=== PATIENT | male | born 1940 | race Caucasian/White ===

== ENCOUNTER 2019-06-04 18:31 | Inpatient (IN) | payer OTHER ==
[~2019-06-04] VITALS: Ht 175.3 cm; Wt 72.6 kg
[2019-06-04 19:25] LABS: Source, Urine Clean Catch
[2019-06-04 19:26] LABS: BASOPHILS ABSOLUTE AUTO 0.04 K/mm3 (0.00-0.23); BASOPHILS PERCENT AUTO 0 % (0-2); EOSINOPHILS ABSOLUTE AUTO 0.26 K/mm3 (0.00-0.68); EOSINOPHILS PERCENT AUTO 2 % (0-6); Hematocrit 45.6 % (37.0-53.0); Hemoglobin 15.7 g/dL (13.5-17.5); IMMATURE GRAN ABSOLUTE AUTO 0.04 K/mm3 (0.00-0.10); IMMATURE GRAN PERCENT AUTO 0 % (0-1); LYMPHOCYTES ABSOLUTE AUTO 1.19 K/mm3 (0.84-5.20); LYMPHOCYTES PERCENT AUTO 10 % (21-46); MONOCYTES ABSOLUTE AUTO 0.95 K/mm3 (0.16-1.47); MONOCYTES PERCENT AUTO 8 % (4-13); Mean Corpuscular HGB 30.8 pg (26.0-34.0); Mean Corpuscular HGB Conc 34.4 g/dL (31.5-36.5); Mean Corpuscular Volume 89 fL (80-100); NEUTROPHILS ABSOLUTE AUTO 9.97 K/mm3 (1.96-9.15); NEUTROPHILS PERCENT AUTO 80 % (41-73); Platelet Count 256 K/mm3 (150-400); RDW Coefficient Variation 12.1 % (11.7-14.2); White Blood Cell Count 12.45 K/mm3 (4.00-11.30)
[2019-06-04 19:27] LABS: Bilirubin, Urine Neg (Neg); Blood, Urine 1+ (Neg); Glucose Qualitative, Urine Neg (Neg); Ketones, Urine 3+ (Neg); Leukocyte Esterase, Urine 1+ (Neg); Nitrite, Urine Neg (Neg); Protein, Urine 1+ (Neg); Specific Gravity, Urine 1.015 (1.003-1.022); Urobilinogen, Urine 1+ (Normal)
[2019-06-04 19:37] LABS: Appearance, Urine Clear (Clear); Color, Urine Yellow (P-Yellow)
[2019-06-04 19:38] LABS: Bacteria Mod /hpf; Mucus Mod (0-Heavy); Squamous Epithelial Cells Few /hpf (Few); White Blood Cells, Urine 0-2 /hpf (0-5)
[2019-06-04 19:48] LABS: Alanine Aminotransfer (ALT/SGP 33 U/L (12-78); Albumin, Blood 4.3 g/dL (3.4-5.0); Albumin/Globulin Ratio 1.2 (0.8-1.8); Alk Phos 65 U/L (50-136); Anion Gap 6 mmol/L (6-16); Aspartate Aminotrans (AST/SGOT 24 U/L (12-37); Blood Urea Nitrogen 20 mg/dL (8-24); Bun/Creatinine Ratio 24.9 (12.0-20.0); CO2, Blood 28 mmol/L (21-32); Calcium, Blood 9.5 mg/dL (8.5-10.1); Chloride, Blood 100 mmol/L (98-108); Globulin, Blood 3.5 g/dL (2.2-4.0); Glomerular Filtration Rate >60 (60-); Glucose, Blood 113 mg/dL (70-99); Potassium, Blood 3.8 mmol/L (3.5-5.5); Sodium, Blood 134 mmol/L (136-145); Total Protein, Blood 7.8 g/dL (6.4-8.2)
[2019-06-04] MEDS ORDERED: ELIQUIS5 MG PO (20:56)
[2019-06-04] MEDS ORDERED: AMIODARONE HCL100 MG PO (20:56)
[2019-06-04] MEDS ORDERED: ZESTORETIC 20-121 EA PO (20:57)
[2019-06-04] MEDS ORDERED: BUPR150ER PO (20:57)
[2019-06-04] MEDS ORDERED: Isosorbide Mono60 MG PO (20:58)
[2019-06-04] MEDS ORDERED: RANO500T PO (20:59)
[2019-06-04] MEDS ORDERED: LEVSOD100 PO (20:59)
[2019-06-04] MEDS ORDERED: OMEPRAZOLE20 MG PO (20:59)
[2019-06-04] MEDS ORDERED: LIDO700A20 TOP (20:59)
[2019-06-04] MEDS ORDERED: Zocor20 MG PO (21:00)
[2019-06-04] MEDS ORDERED: NITR.4SL SL (21:00)
[2019-06-04] MEDS ORDERED: TAMS.4ER PO (21:00)
[2019-06-04] MEDS ORDERED: TRAZ50 PO (21:00)
--- NOTE | 2019-06-04 23:00 | NUR ---
RECEIVED HAND OFF FROM Rosa MARROQUIN RN USING SBAR. TRANSPORTED TO ROOM VIA STRETCHER. TRANSFERED SELF TO BED WITH STANDBY ASSIST, TOLERATED WELL. AAO X3, LOYOLA, FOLLOWS ALL COMMANDS. ORIENTED TO ROOM, CALL SYSTEM, AND POC, VOICES UNDERSTANDING. RESPIRATIONS EVEN AND UNLABORED ON ROOM AIR. LUNG SOUNDS CLEAR BILATERALLY. ABDOMEN TENDER AND NONDISTENDED. HYPERACTIVE BOWEL SOUNDS PRESENT IN ALL QUADS. CONTINENT OF BOWEL AND BLADDER, USES URINAL AND BATHROOM WITH STANDBY ASSIST PRN. RATES CURRENT PAIN AT 8/10. PAIN MEDS TO BE ADMINSTERED PER MD ORDERS WHEN CLEARED THROUGH RX. SCD'S PLACED TO BLE. DENIES FURTHER NEEDS OR WANTS AT THIS TIME. ADMISSION ASSESSMENT IN PROGRESS. SAFETY MEASURES IN PLACE. WILL CONTINUE TO MONITOR.
[2019-06-05 04:02] LABS: BASOPHILS ABSOLUTE AUTO 0.03 K/mm3 (0.00-0.23); BASOPHILS PERCENT AUTO 0 % (0-2); EOSINOPHILS ABSOLUTE AUTO 0.14 K/mm3 (0.00-0.68); EOSINOPHILS PERCENT AUTO 1 % (0-6); Hematocrit 41.5 % (37.0-53.0); Hemoglobin 14.5 g/dL (13.5-17.5); IMMATURE GRAN ABSOLUTE AUTO 0.03 K/mm3 (0.00-0.10); IMMATURE GRAN PERCENT AUTO 0 % (0-1); LYMPHOCYTES ABSOLUTE AUTO 1.05 K/mm3 (0.84-5.20); LYMPHOCYTES PERCENT AUTO 9 % (21-46); MONOCYTES ABSOLUTE AUTO 1.08 K/mm3 (0.16-1.47); MONOCYTES PERCENT AUTO 9 % (4-13); Mean Corpuscular HGB 30.6 pg (26.0-34.0); Mean Corpuscular HGB Conc 34.9 g/dL (31.5-36.5); Mean Corpuscular Volume 88 fL (80-100); Mean Platelet Volume 9.5 fL (9.1-12.4); NEUTROPHILS ABSOLUTE AUTO 9.24 K/mm3 (1.96-9.15); NEUTROPHILS PERCENT AUTO 80 % (41-73); Platelet Count 197 K/mm3 (150-400); RDW Coefficient Variation 12.3 % (11.7-14.2); RDW Standard Deviation 39.6 fL (35.1-46.3); Red Blood Cell Count 4.74 M/mm3 (4.30-5.90); White Blood Cell Count 11.57 K/mm3 (4.00-11.30)
[2019-06-05 04:22] LABS: Alanine Aminotransfer (ALT/SGP 26 U/L (12-78); Albumin, Blood 3.5 g/dL (3.4-5.0); Albumin/Globulin Ratio 1.2 (0.8-1.8); Alk Phos 55 U/L (50-136); Anion Gap 4 mmol/L (6-16); Aspartate Aminotrans (AST/SGOT 21 U/L (12-37); Bilirubin, Total 0.9 mg/dL (0.1-1.0); Blood Urea Nitrogen 20 mg/dL (8-24); Bun/Creatinine Ratio 21.3 (12.0-20.0); CO2, Blood 28 mmol/L (21-32); Calcium, Blood 8.5 mg/dL (8.5-10.1); Chloride, Blood 104 mmol/L (98-108); Creatinine, Blood 0.94 mg/dL (0.60-1.20); Globulin, Blood 2.9 g/dL (2.2-4.0); Glomerular Filtration Rate >60 (60-); Glucose, Blood 124 mg/dL (70-99); Potassium, Blood 4.2 mmol/L (3.5-5.5); Sodium, Blood 136 mmol/L (136-145); Total Protein, Blood 6.4 g/dL (6.4-8.2)
--- NOTE | 2019-06-05 05:25 | NUR ---
SHIFT SUMMARY RESTING WELL WITH EYES CLOSED. RATES PAIN AT 5/10 CURRENTLY, REFUSES OFF FOR PAIN MEDS AT THIS TIME. VOICES UNDERSTANDING OF INSTRUCTIONS TO CALL FOR PAIN MEDS BEFORE PAIN LEVEL ESCALATES. DENIES FURTHER NEEDS AT THIS TIME. SAFETY MEASURES IN PLACE. WILL GIVE HAND OFF TO ONCOMING SHIFT USING SBAR.
--- NOTE | 2019-06-05 19:16 | NUR ---
SUMMARY: PT ADMITTED FOR ACUTE YUN. VSS, A/O. PT UNABLE TO GO TO SURGERY TODAY DUE TO HOME DOSE OF XARELTO TAKEN PRIOR TO ADMIT. PLAN IS FOR SURGERY TOMORROW. PT HAS DENIED NAUSEA. MEDICATED FOR PAIN PER EMAR. FLUIDS RUNNING AND PT VOIDING, INDEPENDENT IN ROOM. NO ACUTE CONCERNS AT THIS TIME. REPORT GIVEN TO MILEY STINSON.
[2019-06-06 03:51] LABS: BASOPHILS ABSOLUTE AUTO 0.04 K/mm3 (0.00-0.23); BASOPHILS PERCENT AUTO 0 % (0-2); EOSINOPHILS ABSOLUTE AUTO 0.33 K/mm3 (0.00-0.68); EOSINOPHILS PERCENT AUTO 3 % (0-6); Hematocrit 39.1 % (37.0-53.0); Hemoglobin 13.3 g/dL (13.5-17.5); IMMATURE GRAN ABSOLUTE AUTO 0.03 K/mm3 (0.00-0.10); IMMATURE GRAN PERCENT AUTO 0 % (0-1); LYMPHOCYTES PERCENT AUTO 7 % (21-46); MONOCYTES ABSOLUTE AUTO 1.22 K/mm3 (0.16-1.47); MONOCYTES PERCENT AUTO 9 % (4-13); Mean Corpuscular HGB 30.8 pg (26.0-34.0); Mean Platelet Volume 9.7 fL (9.1-12.4); NEUTROPHILS ABSOLUTE AUTO 10.84 K/mm3 (1.96-9.15); NEUTROPHILS PERCENT AUTO 81 % (41-73); Platelet Count 174 K/mm3 (150-400); RDW Coefficient Variation 12.4 % (11.7-14.2); RDW Standard Deviation 41.2 fL (35.1-46.3); Red Blood Cell Count 4.32 M/mm3 (4.30-5.90); White Blood Cell Count 13.46 K/mm3 (4.00-11.30)
[2019-06-06 03:52] LABS: Mean Corpuscular Volume 91 fL (80-100)
[2019-06-06 04:10] LABS: Alanine Aminotransfer (ALT/SGP 21 U/L (12-78); Alk Phos 48 U/L (50-136); Anion Gap 6 mmol/L (6-16); Aspartate Aminotrans (AST/SGOT 21 U/L (12-37); Bilirubin, Total 1.3 mg/dL (0.1-1.0); Blood Urea Nitrogen 19 mg/dL (8-24); Bun/Creatinine Ratio 21.7 (12.0-20.0); CO2, Blood 27 mmol/L (21-32); Calcium, Blood 8.1 mg/dL (8.5-10.1); Chloride, Blood 105 mmol/L (98-108); Creatinine, Blood 0.87 mg/dL (0.60-1.20); Glomerular Filtration Rate >60 (60-); Glucose, Blood 113 mg/dL (70-99); Potassium, Blood 4.1 mmol/L (3.5-5.5); Sodium, Blood 138 mmol/L (136-145)
--- NOTE | 2019-06-06 06:40 | NUR ---
SHIFT SUMMARY ASSUMED CARE OF PT AT APPROX 0200 FROM [facility]. PT HAS BEEN A/O C/O PAIN IN ABD X1 AND MEDICATED PER EMAR, USING URINAL AT BEDSIDE. HE WAS ABLE TO SLEEP OFF AND ON T/O REST OF NIGHT. CALL LIGHT IN REACH.
--- NOTE | 2019-06-06 12:04 | NUR ---
PT OUT OF ROOM TO HAVE PROCEDURE. FAMILY PRESENT. PT BEEN NPO SINCE MIDNIGHT. PT VOIDED SMALL AMT HE RECENTLY VOIDED, THAT'S NORMAL FOR ME TO VOID SMALL AMT'S AT A TIME ANYWAY PER PT.
--- NOTE | 2019-06-06 12:12 | NUR ---
History, Chart, Medications and Allergies reviewed before start of procedure. Lungs clear T/O to Auscultation. Patient confirms NPO status and agrees with scheduled surgery. Pre-Op teaching done. Pt verbalizes understanding.
--- NOTE | 2019-06-06 13:37 | NUR ---
06/06/19 1337 Christina John PT ON SCHEDULED ANTIBIOTICS AND RECIEVED THEM PRIOR TO ARRIVAL TO OR.
--- NOTE | 2019-06-06 17:15 | NUR ---
PT RECENTLY BACK FROM PROCEDURE. FAMILY PRESENT. PT SLIGHLY CONFUSED AT TIMES. PT REPORTS PAIN MODERATE BUT DENIES NEED FOR PAIN MEDICATION. PT REPORTS BEING AWARE THAT HE IS SLIGHTLY CONFUSED. PT HAS STERI-STRIPS TO ABD X4. PT ALSO HAS PORFIRIO IN PLACE. PT ASSISTED WITH ADL'S PRN. PT TELE PLACED, GIVEN CALL LIGHT. ALARM IN PLACE FOR SAFETY.
--- NOTE | 2019-06-06 18:34 | NUR ---
SHIFT SUMMARY PT HAD PROCEDURE TODAY. PT WAS SLIGHTLY CONFUSED WHEN OUT OF PROCEDURE ALTHOUGH HE REPORTS FEELING LIKE HE'S GETTING BETTER. PT DENIES NEEDING PAIN MEDICATION WHEN BACK TO ROOM. DISCUSSED PAIN MGMT WITH PT. FAMILY WAS PRESENT WHEN PT BACK TO ROOM, HAVE LEFT FOR HOME. ALARM IN PLACE. PT AWAKES EASILY.
--- NOTE | 2019-06-07 04:30 | NUR ---
SHIFT SUMMARY PT IS A/O AND USES CALL LIGHT APPR. PT USES URINAL. HE HAS HAD PAIN, MEDICATED PER ORDERS. PORFIRIO DRAIN COMPRESSED, LAP SITE DRESSINGS CDI. PT HAS SLEPT ON-AND-OFF THROUGHOUT THE NIGHT. ASSISTED WITH ADL'S PRN.
--- NOTE | 2019-06-07 12:13 | NUR ---
DR MEADOWS HERE TO SEE PT RECENTLY. DISCUSSED PT'S STATUS.
--- NOTE | 2019-06-07 17:59 | NUR ---
SHIFT SUMMARY PT EATING AND DRINKING. PT VOIDING. PT IND IN ROOM WITH STEADY GAIT. PT BEEN ASSISTED WITH ADL'S. PT HAD INCREASED PAIN THIS AFTERNOON, PT REPORTED THAT IT FELT LIKE THE BLOCK WORE OFF. WAS NOTIFIED, SEE NEW ORDERS. PT MED ORDERED FOR PAIN. PT REPORTED THAT PAIN WAS BETTER THIS EVENING.
--- NOTE | 2019-06-07 19:35 | NUR ---
SHIFT SUMMARY PT DRINKING SMALL AMTS OF LIQUID. PT BEEN ASSISTED WITH ADL'S PRN. PT UP AND WALKED IN HALLWAY TODAY X 2 WITH ASSIST FROM RN AFTER DR MEADOWS TO ROOM. PT BEEN UP TO CHAIR, NOW IN BED. PT USING CALL LIGHT APPR. PT PAS IN PLACE. PT VOIDING.
[2019-06-08 04:31] LABS: Hematocrit 34.7 % (37.0-53.0); Hemoglobin 11.8 g/dL (13.5-17.5); Mean Corpuscular HGB 30.9 pg (26.0-34.0); Mean Corpuscular Volume 91 fL (80-100); Mean Platelet Volume 9.8 fL (9.1-12.4); Platelet Count 195 K/mm3 (150-400); RDW Coefficient Variation 12.5 % (11.7-14.2); RDW Standard Deviation 41.4 fL (35.1-46.3); Red Blood Cell Count 3.82 M/mm3 (4.30-5.90); White Blood Cell Count 9.14 K/mm3 (4.00-11.30)
--- NOTE | 2019-06-08 04:36 | NUR ---
SHIFT SUMMARY PT RESTED WELL T/O NIGHT. AAOX4. POD#2. DISCOMFORT CONTROLLED WITH 2 NORCO X2 THIS SHIFT. NO NAUSEA/EMESIS. ABD INCISION WITH GAUZE C/D/I. PORFIRIO SECURE, DRAINED 20cc SS OUT. PT UP TO RESTROOM THIS SHIFT, LARGE AMOUNTS FLATUS, NO BM. IVF + ABX PER ORDERS. PT RESTING AT THIS TIME, NADN, CALL LIGHT IN REACH.
[2019-06-08 04:45] LABS: Anion Gap 4 mmol/L (6-16); Blood Urea Nitrogen 9 mg/dL (8-24); Bun/Creatinine Ratio 10.3 (12.0-20.0); CO2, Blood 30 mmol/L (21-32); Calcium, Blood 8.2 mg/dL (8.5-10.1); Chloride, Blood 104 mmol/L (98-108); Creatinine, Blood 0.88 mg/dL (0.60-1.20); Glomerular Filtration Rate >60 (60-); Glucose, Blood 108 mg/dL (70-99); Potassium, Blood 3.7 mmol/L (3.5-5.5); Sodium, Blood 138 mmol/L (136-145)
--- NOTE | 2019-06-08 13:19 | NUR ---
ASSUMED CARE OF PATIENT. PATIENT IS PLANNING TO DISCHARGE TO HOME LATER THIS AFTERNOON. TELEMETRY DC'D. POWERGLIDE IN PLACE TO RIGHT UPPER ARM AND DC'D AT THIS TIME. PATIENT DENIES NAUSEA AND NEED FOR PAIN MEDS, REQUESTS DOOR SHUT SO HE CAN SLEEP
[2019-06-08] MEDS ORDERED: HYDR1TAB94 PO (13:22)
--- NOTE | 2019-06-08 16:10 | NUR ---
DIACHARGE INSTRUCTIONS REVIEWED WITH PATIENT AND QUESTIONS ANSWERED. PATIENT WAITING FOR TO ARRIVE TO TRANSPORT TO HOME
--- NOTE | 2019-06-08 16:24 | NUR ---
DISCHARGED TO HOME WITH
== END 2019-06-08 16:25 | disposition home or self-care (01) | DRG 418 ==
LOC: ER 18:31 → SURS 21:41
PROVIDERS: Internal Medicine; Nurse Practitioner Acute Care; Physician Assistant; Surgery; ADMIT Internal Medicine
PROC: 0DNU4ZZ Release Omentum, Percutaneous Endoscopic Approach (ICD-10-PCS; 2019-06-06)
PROC: 0FT44ZZ Resection of Gallbladder, Percutaneous Endoscopic Approach (ICD-10-PCS; principal; 2019-06-06 12:45)
DX: K80.00 Calculus of gallbladder with acute cholecystitis without obstruction (principal); I48.20 Chronic atrial fibrillation, unspecified; K56.7 Ileus, unspecified; E03.9 Hypothyroidism, unspecified; I10 Essential (primary) hypertension; I25.10 Atherosclerotic heart disease of native coronary artery without angina pectoris; Z95.1 Presence of aortocoronary bypass graft; N40.0 Benign prostatic hyperplasia without lower urinary tract symptoms; E78.5 Hyperlipidemia, unspecified; Z87.891 Personal history of nicotine dependence; Z79.01 Long term (current) use of anticoagulants
CPT/HCPCS: 36415; 74177; 74300; 76705; 80048; 80053; 81001; 83690; 85025; 85027; 87086; 88304; 90686; 93005; 93010; 96365; 96375; 99285-25; A9270-GY; C1729; C9113; J0330; J1170; J2250; J2405; J2543; J2704; J2710; J3010; J3480; J7120; Q9967

== ENCOUNTER 2020-01-07 05:32 | Observation (INO) | payer OTHER ==
[~2020-01-07] VITALS: Ht 170.2 cm; Wt 75.0 kg
[~2020-01-07 05:32] MED LIST: AMIODARONE HCL100 MG PO; BUPR150ER PO; ELIQUIS5 MG PO; HYDR1TAB94 PO; Isosorbide Mono60 MG PO; LEVSOD100 PO; LIDO700A20 TOP; NITR.4SL SL; OMEPRAZOLE20 MG PO; RANO500T PO; TAMS.4ER PO; TRAZ50 PO; ZESTORETIC 20-121 EA PO; Zocor20 MG PO
[2020-01-07 06:18] LABS: BASOPHILS ABSOLUTE AUTO 0.03 K/mm3 (0.00-0.23); BASOPHILS PERCENT AUTO 1 % (0-2); EOSINOPHILS PERCENT AUTO 8 % (0-6); Hematocrit 37.3 % (37.0-53.0); Hemoglobin 12.6 g/dL (13.5-17.5); IMMATURE GRAN ABSOLUTE AUTO 0.03 K/mm3 (0.00-0.10); IMMATURE GRAN PERCENT AUTO 1 % (0-1); LYMPHOCYTES ABSOLUTE AUTO 1.42 K/mm3 (0.84-5.20); LYMPHOCYTES PERCENT AUTO 24 % (21-46); MONOCYTES ABSOLUTE AUTO 0.48 K/mm3 (0.16-1.47); MONOCYTES PERCENT AUTO 8 % (4-13); Mean Corpuscular HGB 29.9 pg (26.0-34.0); Mean Corpuscular HGB Conc 33.8 g/dL (31.5-36.5); Mean Corpuscular Volume 88 fL (80-100); Mean Platelet Volume 10.2 fL (9.1-12.4); NEUTROPHILS ABSOLUTE AUTO 3.58 K/mm3 (1.96-9.15); NEUTROPHILS PERCENT AUTO 59 % (41-73); Platelet Count 213 K/mm3 (150-400); RDW Coefficient Variation 13.4 % (11.7-14.2); RDW Standard Deviation 43.4 fL (35.1-46.3); Red Blood Cell Count 4.22 M/mm3 (4.30-5.90); White Blood Cell Count 6.04 K/mm3 (4.00-11.30)
[2020-01-07 06:31] LABS: Alanine Aminotransfer (ALT/SGP 23 U/L (12-78); Albumin, Blood 3.4 g/dL (3.4-5.0); Albumin/Globulin Ratio 1.1 (0.8-1.8); Alk Phos 53 U/L (50-136); Anion Gap 8 mmol/L (6-16); Aspartate Aminotrans (AST/SGOT 17 U/L (12-37); Bilirubin, Total 0.3 mg/dL (0.1-1.0); Blood Urea Nitrogen 17 mg/dL (8-24); Bun/Creatinine Ratio 18.5 (12.0-20.0); CO2, Blood 26 mmol/L (21-32); Calcium, Blood 8.7 mg/dL (8.5-10.1); Chloride, Blood 105 mmol/L (98-108); Creatinine, Blood 0.92 mg/dL (0.60-1.20); Globulin, Blood 3.2 g/dL (2.2-4.0); Glomerular Filtration Rate >60 (60-); Glucose, Blood 101 mg/dL (70-99); Potassium, Blood 3.9 mmol/L (3.5-5.5); Sodium, Blood 139 mmol/L (136-145); Total Protein, Blood 6.6 g/dL (6.4-8.2)
[2020-01-07 06:32] LABS: Troponin I <0.015 ng/mL (0.000-0.040)
[2020-01-07] MEDS ORDERED: ELIQUIS5 MG PO (07:42)
[2020-01-07] MEDS ORDERED: ASCO500 PO (07:43)
[2020-01-07] MEDS ORDERED: CARB10OTL (07:43)
[2020-01-07] MEDS ORDERED: FERRO-TIME325 MG (07:44)
[2020-01-07] MEDS ORDERED: HCTZ/LISINOPRIL (07:46)
[2020-01-07] MEDS ORDERED: Ativan1 MG PO (07:47)
[2020-01-07] MEDS ORDERED: MAGNESIUM OXID500 MG PO (07:48)
[2020-01-07 08:08] LABS: International Normalized Ratio 1.08; Prothrombin Time Results 11.5 Sec (9.7-11.5)
--- NOTE | 2020-01-07 17:44 | NUR ---
SHIFT SUMMARY PT ALERT AND ORIENTED. VS STABLE. O2 SATS REMAIN ABOVE 90% ON RA. BP STABLE. HR NSR. PT DENIES ANY CHEST PAIN SINCE ARRIVAL TO UNIT. PT ABLE TO TRANSFER INDEPENDENTLY IN ROOM. HEPARIN GTT DISCONTINUED AND PLAN FOR STRESS TEST TOMORROW. PT TO BE NPO AT MIDNIGHT. WILL CONTINUE TO MONITOR AND REPORT TO ONCOMING RN.
[2020-01-08 04:50] LABS: Hemoglobin 13.9 g/dL (13.5-17.5); Mean Corpuscular HGB 30.8 pg (26.0-34.0); Mean Corpuscular HGB Conc 34.8 g/dL (31.5-36.5); Mean Corpuscular Volume 89 fL (80-100); Mean Platelet Volume 10.5 fL (9.1-12.4); Platelet Count 219 K/mm3 (150-400); RDW Coefficient Variation 13.2 % (11.7-14.2); RDW Standard Deviation 43.5 fL (35.1-46.3); Red Blood Cell Count 4.52 M/mm3 (4.30-5.90); White Blood Cell Count 6.15 K/mm3 (4.00-11.30)
[2020-01-08 05:18] LABS: Anion Gap 4 mmol/L (6-16); Blood Urea Nitrogen 18 mg/dL (8-24); Bun/Creatinine Ratio 17.8 (12.0-20.0); CO2, Blood 30 mmol/L (21-32); Calcium, Blood 8.6 mg/dL (8.5-10.1); Chloride, Blood 105 mmol/L (98-108); Creatinine, Blood 1.01 mg/dL (0.60-1.20); Glomerular Filtration Rate >60 (60-); Glucose, Blood 94 mg/dL (70-99); Potassium, Blood 3.9 mmol/L (3.5-5.5); Sodium, Blood 139 mmol/L (136-145)
--- NOTE | 2020-01-08 06:00 | NUR ---
SHIFT SUMMARY. ASSUMED CARE AT 1900 . PAIN FREE AND OOB IN ROOM. AT 2020 LAST NOC REPORTS SUDDEN LT ANTERIOR CHEST WALL 3/10 PAIN OR ACHE . NOTICED IN MID JAW ACHING FEELING. DESCRIBING TO STAFF AND COMPLETELY GONG WITH IN ABOUT ONE MINUTE, . REPORTS THIS WAS STARTING WHEN HE TURNED TO LT SIDE. ON BACK AND TYLENOL AND PEPSID TAKEN WHEN. PAIN FREE. NO REPORT OF ANY DISCOMFORT OF SOB T/O THE NOC. SLEPT WELL AND AROUSED FOR VS AND LAB. OOB TO VOID AND NO ISSUES NOTED OR REPORTED.. SR ALL NOC. NPO FOR ONE DAY STRESS TEST. LUNGS REMAIN CLEAR. LATE HS SNACK .NO CAFFEINE.
--- NOTE | 2020-01-08 17:22 | NUR ---
PRIOR TO DISCHARGE PT WAS PROVIDED WITH DISHCARGE INSTRUCTIONS REVIEWING CURRENT MEDICATIONS, PHYSICIAN FOLLOW UP INFORMATION AND INFORMATION REGARDING WORSENING OF SYMPTOMS. PERIPHERAL IV WAS REMOVED. PT WAS REMOVED FROM TELEMETRY. PT WAS TAKEN BY WHEELCHAIR TO THE GENERAL ENTERANCE WITH STAFF NURSE AND THEN TAKEN HOME BY PERSONAL VEHICLE WITH .
== END 2020-01-08 16:58 | disposition home or self-care (01) ==
LOC: ER 05:32 → PCU 05:33
PROVIDERS: Emergency Medicine; Internal Medicine; Pharmacist; ADMIT Internal Medicine
DX: I48.91 Unspecified atrial fibrillation (principal); R07.9 Chest pain, unspecified; I10 Essential (primary) hypertension; E03.9 Hypothyroidism, unspecified; I20.0 Unstable angina; G31.84 Mild cognitive impairment of uncertain or unknown etiology; Z79.01 Long term (current) use of anticoagulants; Z79.899 Other long term (current) drug therapy
CPT/HCPCS: 36415; 71046; 78452; 80048; 80053; 83690; 84484; 85025; 85027; 85610; 85730; 93005; 93010; 93017; 99285-25; A9270-GY; A9500; J0706; J1644; J2785

== ENCOUNTER 2020-08-28 09:03 | Day surgery (SDC) | payer OTHER ==
[~2020-08-28] VITALS: Ht 167.6 cm; Wt 70.9 kg
[~2020-08-28 09:03] MED LIST changes: +ASCO500 PO; +Ativan1 MG PO; +CARB10OTL; +FERRO-TIME325 MG; +HCTZ/LISINOPRIL; +MAGNESIUM OXID500 MG PO
--- NOTE | 2020-08-28 11:30 | NUR ---
08/28/20 1130 Airam Hoyt 3ML OF NORMAL SALINE INJECTED INTO THE DESCENDING COLON POLYP BY DR YOUNG.
--- NOTE | 2020-08-28 15:59 | NUR ---
08/28/20 1559 Tomeka Rajan S PT. SITTING AT SIDE OF BED. PT. VERBALIZES BEING OK TO DRESS ON HIS OWN. BEDSIDE CHAIR ALSO NEXT TO BED INCASE PT. WANTED TO DRESS FROM CHAIR. [facility] [place]. [place]ESS BUT PT. VERBALIZED HE WAS OK TO DRESS ON HIS OWN. CALL LIGHT WAS ATTACHED TO HIS PILLOW SO THAT HE COULD REACH IT IF HE NEEDED ANYTHING. HEARD A BANG IN PT.'S ROOM,OPENED CURTAIN & OBSERVED PT. SITTING ON THE FLOOR IN CORNER OF ROOM. PT. HAD VERBALIZED HE HAD FALLEN. [facility] [place] [facility] BOTH IN ROOM. PT. VERBALIZED NOT HITTING HIS HEAD OR HAVING ANY PAIN. OBSERVED BLOOD ON PT.'S GOWN ON LEFT SIDE OF ARM. OBSERVED PT. WITH 2 SKIN TEARS, ONE ON LEFT UPPER ARM & ONE ON LEFT ELBOW AREA. PRESSURE HELD WITH CLOTH, SMALL AMT. BLOOD DRIPPING FROM SITES. PT. ALSO HAD NO COMPLAINTS OF HURTING HIS BACK WHEN [facility].B ASKED PT. DR. CHA NOTIFIED OF ALL THE ABOVE. PER DR. CHA APPLY DRESSINGS & PT. IS OK TO GO HOME. DR. CARDONA ALSO CAME IN ROOM TO ASSESS PT. PER DR. CARDONA, CLEANSE SKIN TEAR WOUNDS WITH HYDROGEN PEROXIDE & PULL SKIN OVER WOUNDS AND APPLY ANTIBIOTIC OINTMENT ON WOUNDS & THEN APPLY DRESSINGS. BOTH LEFT ARM SITES CLEANSED WITH HYDROGEN PEROXIDE, SKIN PULLED OVER OPEN AREA MUCH POSSIBLE, ANTIBIOTIC OINTMENT APPLIED TO 2X2'S, PRESSURE HELD X 10 MIN. & THEN COVERED WITH OPSITE DRESSINGS. SMALL AMT. BLOOD OBSERVED ON BOTH GAUZE DRESSINGS. DR. CHA CAME & SPOKE WITH PT. PER DR. CARDONA & DR. CHA, OK TO SEND PT. HOME. [facility] & [facility] ASSISTED PT. TO DRESS. PT. VERBALIZED AFTER FALLING THAT HE HAS A TENDENCY TO FALL. PT. USES A CANE. PT. TAKEN OUT BY WC WITH SBA INTO CAR. NOTIFIED OF PT.'S FALL. PT.'S EVEN VERBALIZED THAT HE FALLS AT HOME. ALSO NOTIFIED THAT PT. WAS TO START HIS ELIQUIS TOMORROW. PT. & INSTRUCTED TO MAKE SURE THAT IF FEELS ANYTHING DIFFERENT FROM HIS FALL TO CALL DR. MARSHALL. PT ALSO NOTIFIED THAT WE WOULD CALL HIM TOMORROW TO SEE HOW HE WAS DOING.
[2021-02-23] MEDS ORDERED: CIDAFLEX TABLE1 EAC1 PO (13:35)
[2021-02-23] MEDS ORDERED: Isosorbide Mono30 MG PO (13:35)
[2021-02-23] MEDS ORDERED: MAGNESIUM OXID500 MG PO (13:36)
[2021-02-23] MEDS ORDERED: MULVITA PO (13:36)
== END 2020-08-28 12:42 | disposition home or self-care (01) ==
LOC: ORSCSDS 09:03
PROVIDERS: Student in an Organized Health Care Education/Training Program
PROC: 0DBK8ZX Excision of Ascending Colon, Via Natural or Artificial Opening Endoscopic, Diagnostic (ICD-10-PCS; principal; 2020-08-28 10:30)
PROC: 0DBH8ZX Excision of Cecum, Via Natural or Artificial Opening Endoscopic, Diagnostic (ICD-10-PCS; principal; 2020-08-28 10:30)
PROC: 0DBN8ZX Excision of Sigmoid Colon, Via Natural or Artificial Opening Endoscopic, Diagnostic (ICD-10-PCS; principal; 2020-08-28 10:30)
PROC: 0DBM8ZX Excision of Descending Colon, Via Natural or Artificial Opening Endoscopic, Diagnostic (ICD-10-PCS; principal; 2020-08-28 10:30)
DX: R19.5 Other fecal abnormalities (principal); Z86.010 Personal history of colon polyps; D12.2 Benign neoplasm of ascending colon; D12.0 Benign neoplasm of cecum; D12.3 Benign neoplasm of transverse colon; D12.4 Benign neoplasm of descending colon; K63.5 Polyp of colon; K57.30 Diverticulosis of large intestine without perforation or abscess without bleeding; K64.8 Other hemorrhoids; K64.4 Residual hemorrhoidal skin tags; I10 Essential (primary) hypertension; E78.5 Hyperlipidemia, unspecified; E03.9 Hypothyroidism, unspecified; I25.10 Atherosclerotic heart disease of native coronary artery without angina pectoris; Z79.01 Long term (current) use of anticoagulants
CPT/HCPCS: 88305; J0330; J0461; J2405; J2704; J7120

== ENCOUNTER 2021-02-24 07:48 | Day surgery (SDC) | payer OTHER ==
[~2021-02-24] VITALS: Ht 172.7 cm; Wt 68.5 kg
[~2021-02-24 07:48] MED LIST changes: +CIDAFLEX TABLE1 EAC1 PO; +Isosorbide Mono30 MG PO; +MULVITA PO
[2021-02-24] MEDS ORDERED: LISI20 PO (08:55)
[2021-02-24] MEDS ORDERED: ZOCOR20 MG PO (08:57)
[2021-02-24] MEDS ORDERED: RANO500T PO (08:58)
[2021-02-24] MEDS ORDERED: NITR.4SL SL (08:58)
--- NOTE | 2021-02-24 11:55 | NUR ---
PT TO RECOVERY ROOM POST PROCEDURE. PT AWAKE AND CONVERSING APPROPRIATELY; DENIES PAIN POST PROCEDURE. MONITOR SB/SR 50-60'S, B/P 135/65, AFEBRILE, SPO2 98% RA. R GROIN NO SWELLING/HEMATOMA, TEGADERM DRSG INTACT; RLE 2+ X 2 POST PERCLOSE DEPLOYMENT.
[2021-02-24] MEDS ORDERED: Aspir 8181 MG PO (12:11)
--- NOTE | 2021-02-24 14:10 | NUR ---
DR BENITEZ IN TO EVALUATE R WRIST, OK TO DISCHARGE IN 2 HRS IF REMAINS UNCHANGED.
--- NOTE | 2021-02-24 14:15 | NUR ---
PT HOB ELEVATED TO EAT LUNCH, SITE UNCHANGED.
--- NOTE | 2021-02-24 16:15 | NUR ---
PT AMB TO BATHROOM WITHOUT ISSUE, SITE UNCHANGED WITH ACTIVITY. PT DRESSED SELF WITHOUT ISSUE, SITE UNCHANGED; IV REMOVED-CANNULA INTACT.
--- NOTE | 2021-02-24 16:21 | NUR ---
PT RECEIVED DISCHARGE INSTRUCTIONS, SITE MANAGEMENT, MED LIST AND AFTER CARE INSTRUCTIONS; VERBALIZED GOOD UNDERSTANDING. PT LEFT FACILITY VIA W/C, CONDITION STABLE.
== END 2021-02-24 16:21 | disposition home or self-care (01) ==
LOC: MHTC 07:48
DX: I25.118 Atherosclerotic heart disease of native coronary artery with other forms of angina pectoris (principal); I25.718 Atherosclerosis of autologous vein coronary artery bypass graft(s) with other forms of angina pectoris; I10 Essential (primary) hypertension; I48.0 Paroxysmal atrial fibrillation; E78.2 Mixed hyperlipidemia; E78.00 Pure hypercholesterolemia, unspecified; Z95.1 Presence of aortocoronary bypass graft; Z79.01 Long term (current) use of anticoagulants
CPT/HCPCS: 76937; 93005; 93010; 93455; 99152; 99153; A9270; C1760; C1769; C1894; J1644; J2250; J3010; J7030; Q9967

== ENCOUNTER 2021-07-06 15:01 | Observation (INO) | payer OTHER ==
[~2021-07-06] VITALS: Ht 172.7 cm; Wt 69.6 kg
[~2021-07-06 15:01] MED LIST changes: +Aspir 8181 MG PO; +LISI20 PO; +ZOCOR20 MG PO
[2021-07-06 15:40] LABS: BASOPHILS ABSOLUTE AUTO 0.06 K/mm3 (0.00-0.23); BASOPHILS PERCENT AUTO 1 % (0-2); EOSINOPHILS ABSOLUTE AUTO 0.55 K/mm3 (0.00-0.68); EOSINOPHILS PERCENT AUTO 6 % (0-6); Hematocrit 33.9 % (37.0-53.0); Hemoglobin 11.5 g/dL (13.5-17.5); IMMATURE GRAN ABSOLUTE AUTO 0.06 K/mm3 (0.00-0.10); IMMATURE GRAN PERCENT AUTO 1 % (0-1); LYMPHOCYTES ABSOLUTE AUTO 1.53 K/mm3 (0.84-5.20); LYMPHOCYTES PERCENT AUTO 17 % (21-46); MONOCYTES ABSOLUTE AUTO 0.79 K/mm3 (0.16-1.47); MONOCYTES PERCENT AUTO 9 % (4-13); Mean Corpuscular HGB 30.8 pg (26.0-34.0); Mean Corpuscular HGB Conc 33.9 g/dL (31.5-36.5); Mean Corpuscular Volume 91 fL (80-100); NEUTROPHILS PERCENT AUTO 67 % (41-73); Platelet Count 316 K/mm3 (150-400); RDW Coefficient Variation 13.7 % (11.7-14.2); RDW Standard Deviation 44.4 fL (35.1-46.3); Red Blood Cell Count 3.73 M/mm3 (4.30-5.90); White Blood Cell Count 9.19 K/mm3 (4.00-11.30)
[2021-07-06 15:58] LABS: Troponin I <0.015 ng/mL (0.000-0.040)
[2021-07-06 16:02] LABS: Alanine Aminotransfer (ALT/SGP 19 U/L (12-78); Albumin, Blood 3.6 g/dL (3.4-5.0); Albumin/Globulin Ratio 0.9 (0.8-1.8); Alk Phos 80 U/L (50-136); Anion Gap 5 mmol/L (6-16); Aspartate Aminotrans (AST/SGOT 17 U/L (12-37); Bilirubin, Total 1.1 mg/dL (0.1-1.0); Blood Urea Nitrogen 22 mg/dL (8-24); Bun/Creatinine Ratio 21.4 (12.0-20.0); CO2, Blood 28 mmol/L (21-32); Calcium, Blood 9.5 mg/dL (8.5-10.1); Chloride, Blood 102 mmol/L (98-108); Creatinine, Blood 1.03 mg/dL (0.60-1.20); Globulin, Blood 3.8 g/dL (2.2-4.0); Glomerular Filtration Rate >60 (60-); Glucose, Blood 109 mg/dL (70-99); Potassium, Blood 4.3 mmol/L (3.5-5.5); Sodium, Blood 135 mmol/L (136-145); Total Protein, Blood 7.4 g/dL (6.4-8.2)
[2021-07-06 19:29] LABS: Influenza A, PCR NEGATIVE (NEGATIVE); Influenza B, PCR NEGATIVE (NEGATIVE); Resp Syncytial Virus, PCR NEGATIVE (NEGATIVE); SARS-Cov-2 (COVID-19) PCR, MMC NEGATIVE (NEGATIVE)
[2021-07-07 04:59] LABS: Anion Gap 8 mmol/L (6-16); Blood Urea Nitrogen 23 mg/dL (8-24); Bun/Creatinine Ratio 23.6 (12.0-20.0); CO2, Blood 27 mmol/L (21-32); Chloride, Blood 101 mmol/L (98-108); Creatinine, Blood 0.97 mg/dL (0.60-1.20); Glomerular Filtration Rate >60 (60-); Glucose, Blood 106 mg/dL (70-99); Potassium, Blood 4.1 mmol/L (3.5-5.5); Sodium, Blood 136 mmol/L (136-145)
[2021-07-07 05:05] LABS: BASOPHILS ABSOLUTE AUTO 0.03 K/mm3 (0.00-0.23); BASOPHILS PERCENT AUTO 0 % (0-2); EOSINOPHILS ABSOLUTE AUTO 0.41 K/mm3 (0.00-0.68); EOSINOPHILS PERCENT AUTO 6 % (0-6); Hematocrit 28.3 % (37.0-53.0); Hemoglobin 9.8 g/dL (13.5-17.5); IMMATURE GRAN ABSOLUTE AUTO 0.04 K/mm3 (0.00-0.10); IMMATURE GRAN PERCENT AUTO 1 % (0-1); LYMPHOCYTES ABSOLUTE AUTO 1.71 K/mm3 (0.84-5.20); LYMPHOCYTES PERCENT AUTO 25 % (21-46); MONOCYTES ABSOLUTE AUTO 0.64 K/mm3 (0.16-1.47); MONOCYTES PERCENT AUTO 10 % (4-13); Mean Corpuscular HGB 30.8 pg (26.0-34.0); Mean Corpuscular HGB Conc 34.6 g/dL (31.5-36.5); Mean Corpuscular Volume 89 fL (80-100); Mean Platelet Volume 9.6 fL (9.1-12.4); NEUTROPHILS ABSOLUTE AUTO 3.92 K/mm3 (1.96-9.15); NEUTROPHILS PERCENT AUTO 58 % (41-73); Platelet Count 250 K/mm3 (150-400); RDW Coefficient Variation 13.7 % (11.7-14.2); RDW Standard Deviation 44.2 fL (35.1-46.3); Red Blood Cell Count 3.18 M/mm3 (4.30-5.90); White Blood Cell Count 6.75 K/mm3 (4.00-11.30)
[2021-07-07 12:22] LABS: Hematocrit 28.4 % (37.0-53.0); Hemoglobin 9.7 g/dL (13.5-17.5)
[2021-07-07 17:52] LABS: Hematocrit 28.8 % (37.0-53.0); Hemoglobin 9.8 g/dL (13.5-17.5)
--- NOTE | 2021-07-07 18:20 | NUR ---
SHIFT SUMMARY New admit to room 362 and was brought from the ER. Ptaient AA & O x4. Has so mild c/o discomfort to his back after a voiced fall at home prior to admission and has a back fracture and large amount of bruising to lower back area. Has no c/o SOB, NAD noted and VSS. had a BM upon arrival to floor and assisted to bed and went to sleep w/o any issues.
[2021-07-08] MEDS ORDERED: ASCORBIC ACID500 MG PO (00:55)
[2021-07-08] MEDS ORDERED: CARB10OTL BOTHEARS (00:56)
[2021-07-08] MEDS ORDERED: ZESTORETIC 20-121 EA PO (00:58)
[2021-07-08] MEDS ORDERED: TAMS.4ER PO (01:00)
[2021-07-08 05:34] LABS: BASOPHILS ABSOLUTE AUTO 0.03 K/mm3 (0.00-0.23); BASOPHILS PERCENT AUTO 1 % (0-2); EOSINOPHILS ABSOLUTE AUTO 0.41 K/mm3 (0.00-0.68); EOSINOPHILS PERCENT AUTO 8 % (0-6); Hematocrit 28.9 % (37.0-53.0); Hemoglobin 9.9 g/dL (13.5-17.5); IMMATURE GRAN ABSOLUTE AUTO 0.02 K/mm3 (0.00-0.10); IMMATURE GRAN PERCENT AUTO 0 % (0-1); LYMPHOCYTES ABSOLUTE AUTO 1.11 K/mm3 (0.84-5.20); LYMPHOCYTES PERCENT AUTO 20 % (21-46); MONOCYTES ABSOLUTE AUTO 0.52 K/mm3 (0.16-1.47); MONOCYTES PERCENT AUTO 10 % (4-13); Mean Corpuscular HGB 30.3 pg (26.0-34.0); Mean Corpuscular HGB Conc 34.3 g/dL (31.5-36.5); Mean Corpuscular Volume 88 fL (80-100); Mean Platelet Volume 10.4 fL (9.1-12.4); NEUTROPHILS ABSOLUTE AUTO 3.41 K/mm3 (1.96-9.15); NEUTROPHILS PERCENT AUTO 62 % (41-73); Platelet Count 256 K/mm3 (150-400); RDW Coefficient Variation 13.7 % (11.7-14.2); RDW Standard Deviation 43.6 fL (35.1-46.3); Red Blood Cell Count 3.27 M/mm3 (4.30-5.90)
[2021-07-08 06:46] LABS: Alanine Aminotransfer (ALT/SGP 18 U/L (12-78); Albumin/Globulin Ratio 1.1 (0.8-1.8); Alk Phos 70 U/L (50-136); Anion Gap 11 mmol/L (6-16); Aspartate Aminotrans (AST/SGOT 16 U/L (12-37); Blood Urea Nitrogen 19 mg/dL (8-24); CO2, Blood 23 mmol/L (21-32); Chloride, Blood 106 mmol/L (98-108); Globulin, Blood 2.8 g/dL (2.2-4.0); Glomerular Filtration Rate >60 (60-); Glucose, Blood 106 mg/dL (70-99); Potassium, Blood 4.3 mmol/L (3.5-5.5); Sodium, Blood 140 mmol/L (136-145); Total Protein, Blood 5.8 g/dL (6.4-8.2)
== END 2021-07-08 14:35 | disposition home or self-care (01) ==
LOC: ER 15:01 → ERHOLD 15:02 → EDBEDREQ 21:26 → MEDS 07-07 14:18
PROVIDERS: Family Medicine; Physician Assistant; Student in an Organized Health Care Education/Training Program; ADMIT Internal Medicine
DX: I25.110 Atherosclerotic heart disease of native coronary artery with unstable angina pectoris (principal); S32.049A Unspecified fracture of fourth lumbar vertebra, initial encounter for closed fracture; S30.1XXA Contusion of abdominal wall, initial encounter; S70.01XA Contusion of right hip, initial encounter; W18.30XA Fall on same level, unspecified, initial encounter; I95.9 Hypotension, unspecified; R42 Dizziness and giddiness; D64.9 Anemia, unspecified; I48.91 Unspecified atrial fibrillation; I10 Essential (primary) hypertension; E78.5 Hyperlipidemia, unspecified; E03.9 Hypothyroidism, unspecified; G47.00 Insomnia, unspecified; Z95.5 Presence of coronary angioplasty implant and graft; Z87.891 Personal history of nicotine dependence; Z79.01 Long term (current) use of anticoagulants; Z79.899 Other long term (current) drug therapy; Z20.822 Contact with and (suspected) exposure to COVID-19
CPT/HCPCS: 0241U; 36415; 71046; 74177; 80048; 80053; 83690; 83880; 84484; 85014; 85018; 85025; 93005; 93010; 93242; 94762; 97110; 97161; 97166; 97530; 99285-25; A9270; G0378; J7030; J7120; Q9967

== ENCOUNTER 2021-07-09 11:00 | Inpatient (IN) | payer OTHER ==
[~2021-07-09] VITALS: Ht 172.7 cm; Wt 70.0 kg
[~2021-07-09 11:00] MED LIST changes: +ASCORBIC ACID500 MG PO; +CARB10OTL BOTHEARS
[2021-07-09 11:15] LABS: Chloride (POC) 99 mmol/L (98-108); Glucose (ISTAT POC) 147 mg/dL (70-99); Hemoglobin (POC) 10.2 g/dL (13.5-17.5); Potassium (POC) 3.9 mmol/L (3.5-5.5); Sodium (POC) 135 mmol/L (135-148); Total CO2 (POC) 24 mmol/L (21-32)
[2021-07-09 11:41] LABS: Hematocrit 31.8 % (37.0-53.0); Hemoglobin 10.7 g/dL (13.5-17.5); Mean Corpuscular HGB 30.4 pg (26.0-34.0); Mean Corpuscular HGB Conc 33.6 g/dL (31.5-36.5); Mean Corpuscular Volume 90 fL (80-100); Mean Platelet Volume 9.8 fL (9.1-12.4); Platelet Count 271 K/mm3 (150-400); RDW Coefficient Variation 14.2 % (11.7-14.2); RDW Standard Deviation 45.2 fL (35.1-46.3); Red Blood Cell Count 3.52 M/mm3 (4.30-5.90); White Blood Cell Count 7.78 K/mm3 (4.00-11.30)
[2021-07-09 12:05] LABS: Alanine Aminotransfer (ALT/SGP 20 U/L (12-78); Albumin, Blood 3.3 g/dL (3.4-5.0); Alk Phos 73 U/L (50-136); Anion Gap 9 mmol/L (6-16); Aspartate Aminotrans (AST/SGOT 19 U/L (12-37); Blood Urea Nitrogen 23 mg/dL (8-24); Bun/Creatinine Ratio 25.3 (12.0-20.0); CHOL/HDL RATIO 2.9; CO2, Blood 24 mmol/L (21-32); Chloride, Blood 103 mmol/L (98-108); Cholesterol 121 mg/dL (50-200); Creatinine, Blood 0.91 mg/dL (0.60-1.20); Globulin, Blood 3.3 g/dL (2.2-4.0); Glomerular Filtration Rate >60 (60-); Glucose, Blood 144 mg/dL (70-99); HDL Cholesterol 42 mg/dL (>39); LDL/HDL RATIO 1.4; Low Density Lipoprotein Chol 57 mg/dL (0-110); Magnesium, Blood 2.1 mg/dL (1.6-2.4); Sodium, Blood 136 mmol/L (136-145); Total Protein, Blood 6.6 g/dL (6.4-8.2); Triglycerides 110 mg/dL (30-160); Troponin I <0.015 ng/mL (0.000-0.040); Very Low Density Lipoprot Chol 22 mg/dL (6-32)
[2021-07-09 12:17] LABS: Anti-Xa UFH, PHA Monitoring 0.11 IU/mL; International Normalized Ratio 1.04; Prothrombin Time Results 10.9 Sec (9.7-11.5)
--- NOTE | 2021-07-09 15:20 | NUR ---
ARRIVED TO ICU FROM MAINTENANCE PARTS TECHNICIAN PATIENT ARRIVED TO ICU 15 FROM MAINTENANCE PARTS TECHNICIAN ALERT. PATIENT WAS CONVERSING WITH NURSING STAFF ESCORTING HIM. NITROGLYCERIN INF @ 15MCG/MIN AND AGGRASTAT @ 0.143MCG/KG/MIN. TEGADERM CHG DRESSING IN PLACE TO RT GROIN ACCESS SITE W/ MINIMAL BLEEDING AND NO HEMATOMA PRESENT. DR. BENITEZ CAME TO BEDSIDE FOR ASSESSMENT AND PLACED A FEMSTOP OVER WITH W/ RELEASE SCHEDULE WRITTEN ON WHITE BOARD.
[2021-07-09 16:50] LABS: Hematocrit 32.2 % (37.0-53.0); Hemoglobin 11.3 g/dL (13.5-17.5)
--- NOTE | 2021-07-09 18:42 | NUR ---
SHIFT SUMMARY PATIENT BEGAN EXPERIENCING MORE CHEST PAIN TOWARDS END OF SHIFT, MORPHINE 1MG IV GIVEN W/ MINIMAL IMPROVEMENT. RT GROIN SITE REMAINS FREE OF HEMATOMA AND MINIMAL OOZING THAT IS UNCHANGED FROM ARRIVAL TO ICU. FEMSTOP RELEASED PER DR. BENITEZ AIR RELEASE SCHEDULE IN ROOM. PULSES REMAIN PRESENT AND FAINT IN BLE. AGGRASTAT STILL INFUSING AND NITROGLYCERIN GTT STILL ON SB. NO OTHER MAJOR CHANGES DURING SHIFT.
[2021-07-09 22:51] LABS: Hematocrit 29.5 % (37.0-53.0); Hemoglobin 10.2 g/dL (13.5-17.5)
[2021-07-10 03:46] LABS: BASOPHILS ABSOLUTE AUTO 0.03 K/mm3 (0.00-0.23); BASOPHILS PERCENT AUTO 1 % (0-2); EOSINOPHILS ABSOLUTE AUTO 0.27 K/mm3 (0.00-0.68); EOSINOPHILS PERCENT AUTO 4 % (0-6); Hematocrit 29.4 % (37.0-53.0); Hemoglobin 10.1 g/dL (13.5-17.5); IMMATURE GRAN ABSOLUTE AUTO 0.03 K/mm3 (0.00-0.10); IMMATURE GRAN PERCENT AUTO 1 % (0-1); LYMPHOCYTES ABSOLUTE AUTO 0.99 K/mm3 (0.84-5.20); LYMPHOCYTES PERCENT AUTO 16 % (21-46); MONOCYTES ABSOLUTE AUTO 0.53 K/mm3 (0.16-1.47); MONOCYTES PERCENT AUTO 9 % (4-13); Mean Corpuscular HGB 30.8 pg (26.0-34.0); Mean Corpuscular HGB Conc 34.4 g/dL (31.5-36.5); Mean Corpuscular Volume 90 fL (80-100); Mean Platelet Volume 9.7 fL (9.1-12.4); NEUTROPHILS ABSOLUTE AUTO 4.39 K/mm3 (1.96-9.15); NEUTROPHILS PERCENT AUTO 70 % (41-73); Platelet Count 214 K/mm3 (150-400); RDW Coefficient Variation 14.2 % (11.7-14.2); RDW Standard Deviation 45.3 fL (35.1-46.3); Red Blood Cell Count 3.28 M/mm3 (4.30-5.90); White Blood Cell Count 6.24 K/mm3 (4.00-11.30)
[2021-07-10 04:15] LABS: Alanine Aminotransfer (ALT/SGP 32 U/L (12-78); Albumin, Blood 2.8 g/dL (3.4-5.0); Albumin/Globulin Ratio 0.9 (0.8-1.8); Alk Phos 69 U/L (50-136); Anion Gap 6 mmol/L (6-16); Aspartate Aminotrans (AST/SGOT 98 U/L (12-37); Bilirubin, Total 0.9 mg/dL (0.1-1.0); Blood Urea Nitrogen 20 mg/dL (8-24); Bun/Creatinine Ratio 22.6 (12.0-20.0); CO2, Blood 25 mmol/L (21-32); Calcium, Blood 8.3 mg/dL (8.5-10.1); Chloride, Blood 106 mmol/L (98-108); Creatinine, Blood 0.89 mg/dL (0.60-1.20); Glomerular Filtration Rate >60 (60-); Glucose, Blood 121 mg/dL (70-99); Sodium, Blood 137 mmol/L (136-145); Total Protein, Blood 5.8 g/dL (6.4-8.2)
--- NOTE | 2021-07-10 05:11 | NUR ---
End of Shift Summary: AOx4, pleasant and cooperative. Pt complained of severe pain at beginning of shift due to not being able to move (fem stop still in place), was able to decrease pain s/s with morphine and night medications. Fem stop was taken off at 2039, site has old dried bloody drainage, no hematoma and oozing stopped, dressing is intact. Pt also been off nitro since start of grape crusher, BP have been stable and WNL. Pt using the urinal independently and able to eat independently. Had a good night of rest after fem stop was off.
--- NOTE | 2021-07-10 09:49 | NUR ---
ASSUMPTION OF CARE PT ALERT AND ORIENTED. STANDBY ASSIST TO CHAIR TO EAT BREAKFAST. USING URINAL INDEPENDENTLY WITH NO DIFFICULTY. PT DENIES CHEST PAIN THIS MORNING. RIGHT FEMORAL ACCESS SITE SOFT/NONTENDER, NO EVIDENCE OF HEMATOMA. AGGRASTAT TO BE DISCONTINUED AT 1000. VSS AT THIS TIME.
--- NOTE | 2021-07-10 11:32 | NUR ---
Echocardiogram completed.
--- NOTE | 2021-07-10 17:46 | NUR ---
SHIFT SUMMARY NO ACUTE CHANGES THIS SHIFT. PT REMAINS ALERT AND ORIENTED, STANDBY ASSIST. PT CONTINUES TO DENY CHEST PAIN, RIGHT FEMORAL ACCESS SITE UNCHANGED. AGGRASTAT TURNED OFF AT 1000. VSS T/O SHIFT. PT'S AND DRUG AND ALCOHOL COUNSELOR AT BEDSIDE, UPDATED WITH PT'S STATUS AND PLAN OF CARE. PT MADE PCU STATUS. PT'S CODE STATUS CHANGED TO DNI FOLLOWING DISCUSSION WITH PT AND PT'S AND REVIEW OF ADVANCED DIRECTIVE. WILL REPORT TO ONCOMING NURSE.
--- NOTE | 2021-07-10 20:25 | NUR ---
Assumed Care: Pt resting comfortably, AOx4, no complaints of chest pain or overall pain. Very pleasant and cooperative. Able to independently turn self and use urinal. Appropriately calls for more assistance or any questions. Rt groin site clean, dry and intact with no signs of hematoma or bleeding.
--- NOTE | 2021-07-10 21:52 | NUR ---
PT TX TO MEDICAL FLOOR 304. REPORT GIVEN TO IRIS TRENT. PT WAS SAFELY TX AND BEDSIDE REPORT GIVEN. ALL SAFETY CHECKS PERFORMED.
--- NOTE | 2021-07-10 22:50 | NUR ---
TRANSFER NOTE REPORT FROM PRIYA, ICU NURSE. PT TO ROOM BY ICU BED AND STOOD TRANSFERRED TO THE MEDICAL BED. PT ORIENTED TO ROOM/UNIT. CALL LIGHT IN REACH. BED IN LOWEST POSITION.
[2021-07-11 05:01] LABS: BASOPHILS ABSOLUTE AUTO 0.02 K/mm3 (0.00-0.23); BASOPHILS PERCENT AUTO 0 % (0-2); EOSINOPHILS ABSOLUTE AUTO 0.38 K/mm3 (0.00-0.68); EOSINOPHILS PERCENT AUTO 6 % (0-6); Hematocrit 30.4 % (37.0-53.0); Hemoglobin 10.5 g/dL (13.5-17.5); IMMATURE GRAN ABSOLUTE AUTO 0.03 K/mm3 (0.00-0.10); IMMATURE GRAN PERCENT AUTO 1 % (0-1); LYMPHOCYTES ABSOLUTE AUTO 0.96 K/mm3 (0.84-5.20); LYMPHOCYTES PERCENT AUTO 16 % (21-46); MONOCYTES ABSOLUTE AUTO 0.55 K/mm3 (0.16-1.47); MONOCYTES PERCENT AUTO 9 % (4-13); Mean Corpuscular HGB 30.8 pg (26.0-34.0); Mean Corpuscular HGB Conc 34.5 g/dL (31.5-36.5); Mean Corpuscular Volume 89 fL (80-100); NEUTROPHILS ABSOLUTE AUTO 4.07 K/mm3 (1.96-9.15); NEUTROPHILS PERCENT AUTO 68 % (41-73); Platelet Count 217 K/mm3 (150-400); RDW Coefficient Variation 14.3 % (11.7-14.2); RDW Standard Deviation 45.2 fL (35.1-46.3); Red Blood Cell Count 3.41 M/mm3 (4.30-5.90); White Blood Cell Count 6.01 K/mm3 (4.00-11.30)
--- NOTE | 2021-07-11 05:06 | NUR ---
PROPAGATION WORKER SUMMARY ADMITTED FOR UNSTABLE ANGINA. PT IS A DNI. PLAN FOR DISCHARGE TODAY. PT IS TWO DAYS POST STENT PLACEMENT. PT HAS BEEN UP IN THE ROOM A STANDBY ASSIST. USING URINAL INDEPENDENTLY. PT HAS BANDAGE TO RIGHT GROIN ACCESS POINT. PT ECCHYMOTIC TO BACK AND SIDES FROM PREVIOUS FALL. NO COMPLAINTS OF CHEST PAIN. NO OTHER CONCERNS THIS SHIFT.
[2021-07-11 06:04] LABS: Anion Gap 9 mmol/L (6-16); Blood Urea Nitrogen 15 mg/dL (8-24); Bun/Creatinine Ratio 16.6 (12.0-20.0); CO2, Blood 25 mmol/L (21-32); Calcium, Blood 8.8 mg/dL (8.5-10.1); Chloride, Blood 106 mmol/L (98-108); Glomerular Filtration Rate >60 (60-); Glucose, Blood 99 mg/dL (70-99); Phosphorus, Blood 3.2 mg/dL (2.5-4.9); Potassium, Blood 4.1 mmol/L (3.5-5.5); Sodium, Blood 140 mmol/L (136-145)
--- NOTE | 2021-07-11 16:54 | NUR ---
PT IS A/OX3, PLEASANT AND COOPERATIVE. THE PT APPEARS TO BE BREATHING EASILY ON RA AT THIS TIME. THE PT DENIED ANY CHEST PAIN T/O THE DAY. PT IS UP WITH ASSIST. CALL LIGHT IN REACH. WILL CONTINUE TO MONITOR AND ASSESS FOR CHANGES
--- NOTE | 2021-07-12 04:47 | NUR ---
SHIFT SUMMARY PT SLEPT MUCH OF THE SHIFT. PT ASKS THAT HE GET A SHOWER TODAY. PT ALSO ASKS THAT HE ONLY GET CEREAL AND MILK FOR BREAKFAST. STILL NO BM. A&O. TROPONINS ARE STILL ELEVATED, BUT ARE TRENDING DOWNWARDS. PT IS PLEASANT. CALL LIGHT WITHIN REACH AND WILL CONINUE TO MONITOR.
[2021-07-12] MEDS ORDERED: ATORVASTATIN CA80 M1 PO (12:34)
[2021-07-12] MEDS ORDERED: ASPI81CH PO (12:34)
[2021-07-12] MEDS ORDERED: MIRALAX17 GM PO (12:35)
[2021-07-12] MEDS ORDERED: CLOP75 PO (12:35)
--- NOTE | 2021-07-12 14:45 | NUR ---
PT DISCHARGED THE PT VERBALIZED UNDERSTANDING OF THE DC INSTRUCTIONS. THE PT WAS REMINDED TO CALL HIS PCP'S IN THE AM TO SCHEDULE FOLLOW UP APPOINTMENTS. [facility]. THE PT WAS TRANSFERED VIA WHEELCHAIR ACCOMPANIED BY THE MOVIE CRITIC TO MEET HIS RDE HOME. THE PT APPEARED TO BE BREATHING EASILY ON RA AT THE TIME OF DC
== END 2021-07-12 14:57 | disposition home or self-care (01) | DRG 281 ==
LOC: ER 11:00 → ICUW 13:11 → MEDS 13:11 → ERHOLD 13:11 → ICUW 14:09 → MEDS 07-10 21:30
PROVIDERS: Family Medicine; Nurse Practitioner Acute Care; Student in an Organized Health Care Education/Training Program; ADMIT Hospitalist
PROC: B2111ZZ Fluoroscopy of Multiple Coronary Arteries using Low Osmolar Contrast (ICD-10-PCS; principal; 2021-07-09)
PROC: B2121ZZ Fluoroscopy of Single Coronary Artery Bypass Graft using Low Osmolar Contrast (ICD-10-PCS; 2021-07-09)
PROC: B2181ZZ Fluoroscopy of Left Internal Mammary Bypass Graft using Low Osmolar Contrast (ICD-10-PCS; 2021-07-09)
PROC: 4A023N7 Measurement of Cardiac Sampling and Pressure, Left Heart, Percutaneous Approach (ICD-10-PCS; 2021-07-09)
PROC: 02JA3ZZ Inspection of Heart, Percutaneous Approach (ICD-10-PCS; 2021-07-09)
PROC: 3E07317 Introduction of Other Thrombolytic into Coronary Artery, Percutaneous Approach (ICD-10-PCS; 2021-07-09)
DX: I97.190 Other postprocedural cardiac functional disturbances following cardiac surgery (principal); I21.4 Non-ST elevation (NSTEMI) myocardial infarction; T82.867A Thrombosis due to cardiac prosthetic devices, implants and grafts, initial encounter; I21.A9 Other myocardial infarction type; I50.22 Chronic systolic (congestive) heart failure; I25.110 Atherosclerotic heart disease of native coronary artery with unstable angina pectoris; I48.0 Paroxysmal atrial fibrillation; K21.9 Gastro-esophageal reflux disease without esophagitis; E78.5 Hyperlipidemia, unspecified; I10 Essential (primary) hypertension; D63.8 Anemia in other chronic diseases classified elsewhere; E03.9 Hypothyroidism, unspecified; K59.00 Constipation, unspecified; G47.00 Insomnia, unspecified; Z95.5 Presence of coronary angioplasty implant and graft; Z90.49 Acquired absence of other specified parts of digestive tract; Z88.8 Allergy status to other drugs, medicaments and biological substances; N40.0 Benign prostatic hyperplasia without lower urinary tract symptoms; I95.9 Hypotension, unspecified; E78.00 Pure hypercholesterolemia, unspecified
CPT/HCPCS: 36415; 71045; 76937; 80047; 80053; 80061; 80069; 83735; 84484; 85014; 85018; 85025; 85027; 85347; 85520; 85610; 85730; 86850; 86900; 86901; 92920; 93005; 93010; 93306; 93455; 96365; 96366; 96368; 96375; 96376; 99152; 99153; 99285-25; A9270; C1725; C1760; C1769; C1887; C1894; J1644; J2250; J2270; J2370; J2405; J3010; J3246; J7030; J7050; Q9967

== ENCOUNTER 2023-04-23 15:41 | Emergency (ER) | payer OTHER ==
[~2023-04-23] VITALS: Ht 162.6 cm; Wt 69.0 kg
[~2023-04-23 15:41] MED LIST changes: +ASPI81CH PO; +ATORVASTATIN CA80 M1 PO; +CLOP75 PO; +MIRALAX17 GM PO
[2023-04-23 16:36] LABS: BASOPHILS ABSOLUTE AUTO 0.03 K/mm3 (0.00-0.23); BASOPHILS PERCENT AUTO 0 % (0-2); EOSINOPHILS ABSOLUTE AUTO 0.44 K/mm3 (0.00-0.68); EOSINOPHILS PERCENT AUTO 5 % (0-6); Hematocrit 41.7 % (37.0-53.0); Hemoglobin 14.6 g/dL (13.5-17.5); IMMATURE GRAN ABSOLUTE AUTO 0.02 K/mm3 (0.00-0.10); IMMATURE GRAN PERCENT AUTO 0 % (0-1); LYMPHOCYTES ABSOLUTE AUTO 1.11 K/mm3 (0.84-5.20); LYMPHOCYTES PERCENT AUTO 13 % (21-46); MONOCYTES ABSOLUTE AUTO 0.84 K/mm3 (0.16-1.47); MONOCYTES PERCENT AUTO 10 % (4-13); Mean Corpuscular HGB 29.9 pg (26.0-34.0); Mean Corpuscular Volume 86 fL (80-100); Mean Platelet Volume 9.6 fL (9.1-12.4); NEUTROPHILS ABSOLUTE AUTO 6.22 K/mm3 (1.96-9.15); NEUTROPHILS PERCENT AUTO 72 % (41-73); Platelet Count 213 K/mm3 (150-400); RDW Coefficient Variation 13.9 % (11.7-14.2); RDW Standard Deviation 43.6 fL (35.1-46.3); Red Blood Cell Count 4.88 M/mm3 (4.30-5.90); White Blood Cell Count 8.66 K/mm3 (4.00-11.30)
[2023-04-23 16:54] LABS: Albumin, Blood 3.7 g/dL (3.4-5.0); Albumin/Globulin Ratio 1.2 (0.8-1.8); Bilirubin, Total 0.9 mg/dL (0.1-1.0); Bun/Creatinine Ratio 20.1 (12.0-20.0); Calcium, Blood 8.7 mg/dL (8.5-10.1); Creatinine, Blood 0.9 mg/dL (0.60-1.20); Globulin, Blood 3.2 g/dL (2.2-4.0); Potassium, Blood 4.1 mmol/L (3.5-5.5); Total Protein, Blood 6.9 g/dL (6.4-8.2)
[2023-04-23 17:20] LABS: Source, Urine Clean Catch
[2023-04-23 17:31] LABS: Appearance, Urine Clear (Clear); Bilirubin, Urine Neg (Neg); Blood, Urine 1+ (Neg); Color, Urine Yellow (P-Yellow); Glucose Qualitative, Urine Neg (Neg); Ketones, Urine Neg (Neg); Leukocyte Esterase, Urine 2+ (Neg); Nitrite, Urine Neg (Neg); Protein, Urine Neg (Neg); Specific Gravity, Urine 1.015 (1.003-1.022); Urobilinogen, Urine NORM (Normal)
[2023-04-23 17:53] LABS: Bacteria Mod /hpf; Mucus Light (0-Heavy); Squamous Epithelial Cells Few /hpf (Few)
[2023-04-23 19:00] VITALS: BP 149/75
[2023-04-23] MEDS ORDERED: Cefpodoxime Pr100 MG PO (19:28)
== END 2023-04-23 20:00 | disposition left against medical advice (07) ==
LOC: ER 15:41
PROVIDERS: Student in an Organized Health Care Education/Training Program
DX: R29.6 Repeated falls (principal); N39.0 Urinary tract infection, site not specified; Z53.29 Procedure and treatment not carried out because of patient's decision for other reasons; R51.9 Headache, unspecified; M25.562 Pain in left knee; M25.532 Pain in left wrist; Z79.899 Other long term (current) drug therapy; Z87.891 Personal history of nicotine dependence; Z79.02 Long term (current) use of antithrombotics/antiplatelets
CPT/HCPCS: 70450; 73110; 73562-LT; 80053; 81001; 85025; 87077; 87086; 87186; 99284-25

== ENCOUNTER 2023-09-27 13:29 | Emergency (ER) | payer OTHER ==
[~2023-09-27] VITALS: Ht 177.8 cm; Wt 70.3 kg
[~2023-09-27 13:29] MED LIST changes: +Cefpodoxime Pr100 MG PO
[2023-09-27] MEDS ORDERED: ONDA4ODT MM (15:18)
[2023-09-27] MEDS ORDERED: FAMO20 PO (15:18)
[2023-09-27 15:35] VITALS: BP 138/64
== END 2023-09-27 15:39 | disposition home or self-care (01) ==
LOC: ER 13:29
DX: S05.12XA Contusion of eyeball and orbital tissues, left eye, initial encounter (principal); H11.32 Conjunctival hemorrhage, left eye; S00.83XA Contusion of other part of head, initial encounter; M25.511 Pain in right shoulder; I10 Essential (primary) hypertension; E78.5 Hyperlipidemia, unspecified; I48.91 Unspecified atrial fibrillation; E03.9 Hypothyroidism, unspecified; W18.09XA Striking against other object with subsequent fall, initial encounter; Y93.K9 Activity, other involving animal care; Z79.899 Other long term (current) drug therapy; Z79.890 Hormone replacement therapy; Z79.82 Long term (current) use of aspirin; Z79.02 Long term (current) use of antithrombotics/antiplatelets
CPT/HCPCS: 70450; 70486; 72125; 99284-25

== ENCOUNTER 2023-12-19 20:21 | Emergency (ER) | payer OTHER ==
[~2023-12-19] VITALS: Ht 172.7 cm; Wt 63.5 kg
[2023-12-19 23:00] VITALS: BP 137/71
== END 2023-12-19 23:08 | disposition home or self-care (01) ==
LOC: ER 20:21
DX: S20.211A Contusion of right front wall of thorax, initial encounter (principal); I10 Essential (primary) hypertension; E03.9 Hypothyroidism, unspecified; W19.XXXA Unspecified fall, initial encounter; Z79.899 Other long term (current) drug therapy; Z79.82 Long term (current) use of aspirin; Z79.890 Hormone replacement therapy; Z95.1 Presence of aortocoronary bypass graft

== ENCOUNTER 2024-05-17 15:04 | Observation (INO) | payer OTHER ==
[~2024-05-17] VITALS: Ht 175.3 cm; Wt 74.7 kg
[~2024-05-17 15:04] MED LIST changes: +FAMO20 PO; +ONDA4ODT MM
[2024-05-17 16:13] LABS: BASOPHILS ABSOLUTE AUTO 0.05 K/mm3 (0.00-0.23); BASOPHILS PERCENT AUTO 1 % (0-2); EOSINOPHILS ABSOLUTE AUTO 0.62 K/mm3 (0.00-0.68); EOSINOPHILS PERCENT AUTO 7 % (0-6); Hemoglobin 12.8 g/dL (13.5-17.5); IMMATURE GRAN ABSOLUTE AUTO 0.03 K/mm3 (0.00-0.10); IMMATURE GRAN PERCENT AUTO 0 % (0-1); LYMPHOCYTES ABSOLUTE AUTO 1.89 K/mm3 (0.84-5.20); LYMPHOCYTES PERCENT AUTO 22 % (21-46); MONOCYTES ABSOLUTE AUTO 0.65 K/mm3 (0.16-1.47); MONOCYTES PERCENT AUTO 8 % (4-13); Mean Corpuscular HGB 30.2 pg (26.0-34.0); Mean Corpuscular HGB Conc 34.6 g/dL (31.5-36.5); Mean Corpuscular Volume 87 fL (80-100); Mean Platelet Volume 10.6 fL (9.1-12.4); NEUTROPHILS ABSOLUTE AUTO 5.26 K/mm3 (1.96-9.15); NEUTROPHILS PERCENT AUTO 62 % (41-73); Platelet Count 203 K/mm3 (150-400); RDW Coefficient Variation 15.3 % (11.7-14.2); Red Blood Cell Count 4.24 M/mm3 (4.30-5.90)
[2024-05-17 16:35] LABS: Albumin, Blood 3.5 g/dL (3.4-5.0); Albumin/Globulin Ratio 1.1 (0.8-1.8); Bilirubin, Total 0.4 mg/dL (0.1-1.0); Bun/Creatinine Ratio 28.9 (12.0-20.0); Calcium, Blood 8.9 mg/dL (8.5-10.1); Creatinine, Blood 1.14 mg/dL (0.60-1.20); Globulin, Blood 3.2 g/dL (2.2-4.0); Potassium, Blood 4.2 mmol/L (3.5-5.5); Total Protein, Blood 6.7 g/dL (6.4-8.2)
[2024-05-17] MEDS ORDERED: Ondansetron HCl 2 MG / ML 2ML Vial IV PRN (19:30)
[2024-05-17] MEDS ORDERED: Acetaminophen 325 MG TABLET PO PRN (19:30)
[2024-05-17] MEDS ORDERED: Aspirin 325 MG Tab PO ONE (20:00)
[2024-05-17] MEDS ORDERED: DOCU100 PO (20:21)
[2024-05-17] MEDS ORDERED: LISI20 PO (20:24)
[2024-05-17] MEDS ORDERED: PANTOPRAZOLE SO20 M3 PO (20:25)
[2024-05-17] MEDS ORDERED: Isosorbide Mono30 MG PO (20:26)
[2024-05-17] MEDS ORDERED: AMIODARONE HCL100 M3 PO (20:28)
--- NOTE | 2024-05-17 21:07 | NUR ---
NEW ADMIT. PATIENT ARRIVED TO ROOM 360 VIA GURNEY AND 1P TRANSPORT. PATIENT ARRVED WITH HIS STREET CLOTHES WITH HIM. PATIENT ABLE TO SELF AMBULATE FROM THE GURNEY TO THE HOSPITAL BED INDEPENDENTLY. PATIENT IS A&O. PATIENT SETTLED IN ROOM. THIS RN TO THE [facility] PATIENT CARE.
[2024-05-17 21:18] VITALS: BP 143/69
[2024-05-18 04:11] VITALS: BP 128/74
--- NOTE | 2024-05-18 04:14 | NUR ---
SHIFT SUMMARY. PATIENT IS A&OX4. PATIENT UP INDEPENDENTLY IN ROOM-WILL CALL IF HE FEELS UNSTEADY. NO CHEST PAIN REPORTED THIS SHIFT-PATIENT REPORTED TO THIS RN THAT "I HAD A TWINGE IN MY HEART, AND I DIDNT HAVE CHEST PAIN". PATIENT IS PLEASANT AND COOPERATIVE WITH CARE. PATIENT RESTED T/O NIGHT WITH RESPIRATIONS EQUAL AND UNLABORED ON RA. PATIENT CALLS APPROPRIATELY AND IS ABLE TO MAKE HIS NEEDS KNOWN. BED IS LOCKED IN THE LOWEST POSITION WITH CALL LIGHT IN REACH. CARE IS ONGOING.
[2024-05-18] MEDS ORDERED: Levothyroxine Sodium 0.1 MG Tab PO SCH (06:00)
[2024-05-18] MEDS ORDERED: Omeprazole 20 MG CapCR PO SCH (06:00)
[2024-05-18 07:18] VITALS: BP 140/88
[2024-05-18] MEDS ORDERED: Isosorbide Mononitrate 60 MG TABCR PO SCH (09:00)
[2024-05-18] MEDS ORDERED: Tamsulosin HCl 0.4 MG Cap PO SCH (09:00)
[2024-05-18] MEDS ORDERED: Enoxaparin 40 MG/0.4 ML SYR SC SCH (09:00)
--- NOTE | 2024-05-18 14:32 | NUR ---
DISCHARGE NOTE: IV AND TELE REMOVED. DISCHARGE WENT OVER AND SIGNED BY PATIENT. PATIENT GOT HIMSELF DRESSES AND GATHERED HIS BELONGINGS. PATIENT CALLED HIS TO HAVE HER COME PICK HIM UP FROM THE [facility]. PATIENT WHEELED DOWN TO [facility] BY THIS RN. NO SIGNS OR SYMPTOMS OF DISTRESS DURING DISCHARGE.
== END 2024-05-18 14:22 | disposition home or self-care (01) ==
LOC: ER 15:04 → MEDS 15:05
PROVIDERS: Student in an Organized Health Care Education/Training Program; ADMIT Student in an Organized Health Care Education/Training Program
DX: R07.89 Other chest pain (principal); I25.10 Atherosclerotic heart disease of native coronary artery without angina pectoris; I10 Essential (primary) hypertension; E78.5 Hyperlipidemia, unspecified; E03.9 Hypothyroidism, unspecified; I48.91 Unspecified atrial fibrillation; K21.9 Gastro-esophageal reflux disease without esophagitis; Z79.890 Hormone replacement therapy; Z79.899 Other long term (current) drug therapy; Z79.82 Long term (current) use of aspirin; Z79.02 Long term (current) use of antithrombotics/antiplatelets
CPT/HCPCS: 36415; 71046; 80053; 83690; 83880; 84484; 85025; 93005; 93010; 96372; 99285-25; A9270; G0378; J1650

== ENCOUNTER 2024-06-07 14:24 | Emergency (ER) | payer OTHER ==
[~2024-06-07] VITALS: Ht 172.7 cm; Wt 72.6 kg
[~2024-06-07 14:24] MED LIST changes: +AMIODARONE HCL100 M3 PO; +DOCU100 PO; +PANTOPRAZOLE SO20 M3 PO
[2024-06-07 14:53] LABS: BASOPHILS ABSOLUTE AUTO 0.04 K/mm3 (0.00-0.23); BASOPHILS PERCENT AUTO 0 % (0-2); EOSINOPHILS ABSOLUTE AUTO 0.03 K/mm3 (0.00-0.68); EOSINOPHILS PERCENT AUTO 0 % (0-6); Hematocrit 41.8 % (37.0-53.0); Hemoglobin 14.3 g/dL (13.5-17.5); IMMATURE GRAN PERCENT AUTO 1 % (0-1); LYMPHOCYTES ABSOLUTE AUTO 1.33 K/mm3 (0.84-5.20); LYMPHOCYTES PERCENT AUTO 10 % (21-46); MONOCYTES ABSOLUTE AUTO 0.32 K/mm3 (0.16-1.47); MONOCYTES PERCENT AUTO 2 % (4-13); Mean Corpuscular HGB 30.6 pg (26.0-34.0); Mean Corpuscular HGB Conc 34.2 g/dL (31.5-36.5); Mean Corpuscular Volume 89 fL (80-100); Mean Platelet Volume 9.9 fL (9.1-12.4); NEUTROPHILS ABSOLUTE AUTO 11.65 K/mm3 (1.96-9.15); NEUTROPHILS PERCENT AUTO 87 % (41-73); Platelet Count 254 K/mm3 (150-400); RDW Coefficient Variation 15.7 % (11.7-14.2); Red Blood Cell Count 4.68 M/mm3 (4.30-5.90); White Blood Cell Count 13.47 K/mm3 (4.00-11.30)
[2024-06-07 15:13] LABS: Albumin, Blood 4.4 g/dL (3.4-5.0); Albumin/Globulin Ratio 1.4 (0.8-1.8); Bilirubin, Total 2.3 mg/dL (0.1-1.0); Bun/Creatinine Ratio 54.2 (12.0-20.0); Calcium, Blood 9.7 mg/dL (8.5-10.1); Creatinine, Blood 0.66 mg/dL (0.60-1.20); Globulin, Blood 3.1 g/dL (2.2-4.0); Potassium, Blood 4.3 mmol/L (3.5-5.5); Total Protein, Blood 7.5 g/dL (6.4-8.2)
[2024-06-07 15:17] LABS: Influenza A, PCR NEGATIVE (NEGATIVE); Influenza B, PCR NEGATIVE (NEGATIVE); Resp Syncytial Virus, PCR NEGATIVE (NEGATIVE); SARS-Cov-2 (COVID-19) PCR, MMC NEGATIVE (NEGATIVE)
[2024-06-07] MEDS ORDERED: Amoxicillin/Clavulanate K 875 MG Tab PO ONE (17:00)
[2024-06-07] MEDS ORDERED: MetroNIDAZOLE 500 MG Tab PO ONE (17:00)
[2024-06-07] MEDS ORDERED: COLACE100 MG PO (17:01)
[2024-06-07] MEDS ORDERED: Flagyl500 MG PO (17:01)
[2024-06-07] MEDS ORDERED: AMOCLA875 PO (17:01)
[2024-06-07 18:09] VITALS: BP 11/62
== END 2024-06-07 18:10 | disposition home or self-care (01) ==
LOC: ER 14:24
PROVIDERS: Physician Assistant
DX: K52.9 Noninfective gastroenteritis and colitis, unspecified (principal); E78.5 Hyperlipidemia, unspecified; I48.91 Unspecified atrial fibrillation; I10 Essential (primary) hypertension; E03.9 Hypothyroidism, unspecified; Z79.02 Long term (current) use of antithrombotics/antiplatelets; Z79.899 Other long term (current) drug therapy
CPT/HCPCS: 0241U; 74177; 80053; 83690; 85025; 99284-25; A9270; Q9967